=== PATIENT | female | born 1965 | race African-American/Black ===

== ENCOUNTER 2018-02-25 18:46 | Emergency (ER) | payer SELFPAY ==
[2018-02-25] MEDS ORDERED: Ketorolac Tromethamine 30 MG/ML VIAL ONE (20:17)
[2018-02-25] MEDS ORDERED: diphenhydrAMINE 50 MG/ML VIAL ONE (20:17)
[2018-02-25 20:39] LABS: #Eosinphils 0.2 thou/uL (0.0-0.7); #Lymphocytes 2.8 thou/uL (1.20-3.40); #Monocytes 0.4 thou/uL (0.11-0.59); #Neutrophils 5.6 thou/uL (1.40-6.50); %Basophils 0.2 % (0.0-1.0); %Eosinophils 2.1 % (0.0-10.0); %Lymphocytes 31.2 % (21.0-51.0); %Monocytes 4.6 % (0.0-10.0); %Neutrophils 61.9 % (42.0-75.0); Hemoglobin 12.7 g/dL (12.0-16.0); Mean Corpuscular HGB CONC 33.2 g/dL (32.0-36.0); Mean Corpuscular Hemoglobin 30.3 pg (27.0-31.0); Mean Corpuscular Volume 91.2 fl (81.0-99.0); Mean Platelet Volume 8.7 fL (7.4-10.4); Platelet Count 237 thou/uL (130-400); RBC Distribution Width 12.4 % (11.5-14.5); Red Blood Cell (RBC) Count 4.19 mill/uL (4.20-5.40); White Blood Cell (WBC) Count 9.1 thou/uL (4.8-10.8)
[2018-02-25 20:45] LABS: BHCG - Serum Negative (NEGATIVE); Pregs Control Background? CLEAR/WHITE (CLR/WHITE); Pregs Control Bar Appear? YES (CONTROL BAR)
[2018-02-25 20:53] LABS: ALT (SGPT) 15 U/L (8-55); AST (SGOT) 14 U/L (5-34); Alkaline Phosphatase 98 U/L (40-150); Anion Gap 11 mmol/L (10-20); BUN (Urea Nitrogen) 15 mg/dL (9.8-20.1); Bilirubin, Total 0.5 mg/dL (0.2-1.2); Calc. Creatinine Clearance 0 mL/min (70-130); Calcium 9.6 mg/dL (7.8-10.44); Carbon Dioxide 26 mmol/L (22-29); Chloride 106 mmol/L (98-107); Estimated GFR-MDRD 74; Globulin 2.8 g/dL (2.4-3.5); Glucose 95 mg/dL (70-105); Potassium 3.6 mmol/L (3.5-5.1); Protein, Total 6.8 g/dL (6.0-8.3); Sodium 139 mmol/L (136-145)
== END 2018-02-25 21:31 | disposition home or self-care (01) ==
LOC: ERS 18:46
DX: T63.441A Toxic effect of venom of bees, accidental (unintentional), initial encounter (principal); R55 Syncope and collapse; E03.9 Hypothyroidism, unspecified; Z79.899 Other long term (current) drug therapy
CPT/HCPCS: 36415; 80053; 84703; 85025; 93005; 96361; 96374; 96375; J1200; J1885

== ENCOUNTER 2019-05-28 13:34 | Emergency (ER) | payer OTHER, SELFPAY ==
[~2019-05-28 13:34] MED LIST: ISOVUE-370 76%-LOCM 1 ML ONE
[2019-05-28] MEDS ORDERED: HYDROcodone/Acetaminophen 5/325 mg Tablet ONE (15:18)
[2019-05-28 15:41] LABS: #Eosinphils 0.1 thou/uL (0.0-0.7); #Lymphocytes 3.1 thou/uL (1.20-3.40); #Monocytes 0.3 thou/uL (0.11-0.59); #Neutrophils 4.5 thou/uL (1.40-6.50); %Basophils 0.2 % (0.0-1.0); %Eosinophils 1.7 % (0.0-10.0); %Lymphocytes 38.2 % (21.0-51.0); %Monocytes 4.3 % (0.0-10.0); %Neutrophils 55.7 % (42.0-75.0); Hemoglobin 12.6 g/dL (12.0-16.0); Mean Corpuscular HGB CONC 33.3 g/dL (32.0-36.0); Mean Corpuscular Hemoglobin 30.4 pg (27.0-31.0); Mean Corpuscular Volume 91.5 fL (78.0-98.0); Mean Platelet Volume 8.9 fL (7.4-10.4); Platelet Count 250 thou/uL (130-400); RBC Distribution Width 12.4 % (11.5-14.5); Red Blood Cell (RBC) Count 4.14 mill/uL (4.20-5.40); White Blood Cell (WBC) Count 8.1 thou/uL (4.8-10.8)
[2019-05-28 16:01] LABS: ALT (SGPT) 14 U/L (8-55); AST (SGOT) 16 U/L (5-34); Albumin 4.3 g/dL (3.5-5.0); Alkaline Phosphatase 88 U/L (40-150); Anion Gap 12 mmol/L (10-20); BUN (Urea Nitrogen) 15 mg/dL (9.8-20.1); Bilirubin, Total 0.5 mg/dL (0.2-1.2); Calc. Creatinine Clearance 0 mL/min (70-130); Calcium 9.8 mg/dL (7.8-10.44); Carbon Dioxide 25 mmol/L (22-29); Chloride 104 mmol/L (98-107); Estimated GFR-MDRD Greater than 90; Globulin 2.8 g/dL (2.4-3.5); Glucose 107 mg/dL (70-105); Potassium 3.4 mmol/L (3.5-5.1); Protein, Total 7.1 g/dL (6.0-8.3); Sodium 138 mmol/L (136-145)
--- NOTE | 2019-05-28 16:07 | CT ---
CT ABDOMEN AND PELVIS WITH IV CONTRAST: 05/28/19 INDICATIONS: Abdominal pain. FINDINGS: The lung bases are clear. The liver, spleen and pancreas are unremarkable. Post cholecystectomy changes. Adrenal glands appear normal. Kidneys are unremarkable. Small bowel loops appear normal. Appendix appears normal. Colon unremarkable with the left colon decompressed. Aorta normal caliber. N o adenopathy apparent. Osseous structures unremarkable. IMPRESSION: No acute intra-abdominal process identified. POS: [facility]
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
--- NOTE | 2019-05-28 16:10 | RAD ---
LEFT KNEE FOUR VIEWS: 05/28/19 HISTORY: Fall, left knee pain. FINDINGS/IMPRESSION: No acute fracture or dislocation is seen. No joint effusion is identified. Mild degenerative changes are present. POS: [facility]
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
--- NOTE | 2019-05-28 16:26 | RAD ---
THREE VIEW RIGHT HAND: 05/28/19 INDICATION: Fall with injury and pain. FINDINGS: No fracture or dislocation. No radiopaque foreign body. There is mild osteoarthritis. IMPRESSION: No acute osseous abnormality of the right hand. POS: CET
== END 2019-05-28 16:55 | disposition home or self-care (01) ==
LOC: ERS 13:34
DX: S61.401A Unspecified open wound of right hand, initial encounter (principal); S50.812A Abrasion of left forearm, initial encounter; S80.212A Abrasion, left knee, initial encounter; S80.211A Abrasion, right knee, initial encounter; R10.9 Unspecified abdominal pain; R10.817 Generalized abdominal tenderness; E03.9 Hypothyroidism, unspecified; Z79.899 Other long term (current) drug therapy; W01.0XXA Fall on same level from slipping, tripping and stumbling without subsequent striking against object, initial encounter
CPT/HCPCS: 74177; 80053; 85025; Q9966

== ENCOUNTER 2019-06-03 12:06 | Emergency (ER) | payer SELFPAY ==
[2019-06-03 12:41] LABS: #Eosinphils 0.2 thou/uL (0.0-0.7); #Lymphocytes 3.1 thou/uL (1.20-3.40); #Monocytes 0.6 thou/uL (0.11-0.59); #Neutrophils 5.9 thou/uL (1.40-6.50); %Basophils 0.3 % (0.0-1.0); %Eosinophils 1.6 % (0.0-10.0); %Lymphocytes 31.8 % (21.0-51.0); %Monocytes 5.9 % (0.0-10.0); %Neutrophils 60.4 % (42.0-75.0); Hemoglobin 12.3 g/dL (12.0-16.0); Mean Corpuscular HGB CONC 33.4 g/dL (32.0-36.0); Mean Corpuscular Hemoglobin 30.3 pg (27.0-31.0); Mean Corpuscular Volume 90.7 fL (78.0-98.0); Platelet Count 237 thou/uL (130-400); RBC Distribution Width 12.4 % (11.5-14.5); Red Blood Cell (RBC) Count 4.06 mill/uL (4.20-5.40); White Blood Cell (WBC) Count 9.8 thou/uL (4.8-10.8)
[2019-06-03 13:00] LABS: ALT (SGPT) 15 U/L (8-55); AST (SGOT) 13 U/L (5-34); Albumin 4.1 g/dL (3.5-5.0); Alkaline Phosphatase 93 U/L (40-150); Anion Gap 11 mmol/L (10-20); BUN (Urea Nitrogen) 15 mg/dL (9.8-20.1); Bilirubin, Total 0.3 mg/dL (0.2-1.2); Calc. Creatinine Clearance 0 mL/min (70-130); Calcium 9.9 mg/dL (7.8-10.44); Carbon Dioxide 26 mmol/L (22-29); Chloride 106 mmol/L (98-107); Estimated GFR-MDRD 76; Globulin 2.7 g/dL (2.4-3.5); Glucose 80 mg/dL (70-105); Lipase 12 U/L (8-78); Potassium 3.7 mmol/L (3.5-5.1); Protein, Total 6.8 g/dL (6.0-8.3); Sodium 139 mmol/L (136-145)
== END 2019-06-03 14:02 | disposition home or self-care (01) ==
LOC: ERS 12:06
DX: R10.9 Unspecified abdominal pain (principal); R10.816 Epigastric abdominal tenderness; E03.9 Hypothyroidism, unspecified; Z79.899 Other long term (current) drug therapy
CPT/HCPCS: 36415; 80053; 83690; 85025; 99284

== ENCOUNTER 2019-10-13 03:20 | Emergency (ER) | payer SELFPAY ==
[2019-10-13 04:03] LABS: #Basophils 0.1 thou/uL (0.0-0.2); #Eosinphils 0.2 thou/uL (0.0-0.7); #Lymphocytes 3.3 thou/uL (1.20-3.40); #Monocytes 0.4 thou/uL (0.11-0.59); #Neutrophils 4.8 thou/uL (1.40-6.50); %Basophils 1.4 % (0.0-1.0); %Eosinophils 1.9 % (0.0-10.0); %Lymphocytes 37.5 % (21.0-51.0); %Monocytes 4.6 % (0.0-10.0); %Neutrophils 54.6 % (42.0-75.0); Hemoglobin 12.7 g/dL (12.0-16.0); Mean Corpuscular HGB CONC 32.6 g/dL (32.0-36.0); Mean Corpuscular Hemoglobin 29.8 pg (27.0-31.0); Mean Corpuscular Volume 91.3 fL (78.0-98.0); Mean Platelet Volume 9.6 fL (7.4-10.4); Platelet Count 227 thou/uL (130-400); RBC Distribution Width 12.5 % (11.5-14.5); Red Blood Cell (RBC) Count 4.27 mill/uL (4.20-5.40); White Blood Cell (WBC) Count 8.8 thou/uL (4.8-10.8)
[2019-10-13 04:26] LABS: ALT (SGPT) 12 U/L (8-55); AST (SGOT) 13 U/L (5-34); Albumin 4.2 g/dL (3.5-5.0); Alkaline Phosphatase 80 U/L (40-110); Anion Gap 11 mmol/L (10-20); BUN (Urea Nitrogen) 17 mg/dL (9.8-20.1); Bilirubin, Total 0.5 mg/dL (0.2-1.2); Calc. Creatinine Clearance 0 mL/min (70-130); Calcium 9.5 mg/dL (7.8-10.44); Carbon Dioxide 25 mmol/L (22-29); Chloride 105 mmol/L (98-107); Estimated GFR-MDRD 83; Globulin 2.8 g/dL (2.4-3.5); Glucose 105 mg/dL (70-105); Potassium 3.5 mmol/L (3.5-5.1); Sodium 137 mmol/L (136-145)
[2019-10-13 05:03] LABS: Bilirubin Negative (Negative); Blood, Urine Negative (Negative); Clarity Clear (Clear); Glucose, Urine (Dipstick) Normal (Negative); Leukocyte Negative Leu/uL (Negative); Nitrite Negative (Negative); Protein, Urine (Dipstick) Negative (Neg-Trace); Urobilinogen Normal mg/dL (Less than 2)
--- NOTE | 2019-10-13 08:15 | CT ---
PRELIMINARY REPORT/[facility]/EMERGENCY AFTER HOURS PROCEDURE: PROCEDURE: CT Head without Contrast . HISTORY: Dizziness and blurred vision. TECHNIQUE: Axial images were performed without the administration of IV contrast with or without mult iplanar reformations . COMPARISON: None . FINDINGS: Brain shows no mass, hemorrhage, or acute stroke. Ventricles are normal size for patient's age. No acute skull or scalp abnormality. Visualized sinuses and mastoids are clear. IMPRESSION: Normal CT scan of the head . ELECTRONICALLY SIGNED BY: Jeb Hanna MD Oct 13, 2019 4:49:41 AM ADVICE NURSE This report is intended for review by the ordering physician only, in accordance of law. If you recei ve this report in error, please call [facility] at [phone]. FINAL REPORT HEAD CT WITHOUT CONTRAST: DATE: 10/13/2019. COMPARISON: None. HISTORY: Dizziness with blurred vision. FINDINGS: I agree with the preliminary report. Imaged paranasal sinuses and mastoid air cells are well aerated . No displaced calvarial fracture, intracranial hemorrhage, midline shift, or mass effect. IMPRESSION: No acute findings. POS: [facility]
== END 2019-10-13 05:07 | disposition home or self-care (01) ==
LOC: ERS 03:20
DX: R55 Syncope and collapse (principal); E11.9 Type 2 diabetes mellitus without complications; E03.9 Hypothyroidism, unspecified; Z79.899 Other long term (current) drug therapy
CPT/HCPCS: 70450; 80053; 81003; 84443; 84484; 85025; 93005

== ENCOUNTER 2019-12-08 04:39 | Emergency (ER) | payer SELFPAY ==
[2019-12-08] MEDS ORDERED: Acetaminophen 500 MG TAB ONE (05:56)
== END 2019-12-08 06:04 | disposition home or self-care (01) ==
LOC: ERS 04:39
DX: J10.1 Influenza due to other identified influenza virus with other respiratory manifestations (principal); E03.9 Hypothyroidism, unspecified; E11.9 Type 2 diabetes mellitus without complications; Z79.899 Other long term (current) drug therapy
CPT/HCPCS: 87804; 99283

== ENCOUNTER 2019-12-11 05:28 | Emergency (ER) | payer SELFPAY ==
[2019-12-11] MEDS ORDERED: Benzonatate 100 MG CAP PO SCH (05:45)
[2019-12-11 05:54] LABS: #Eosinphils 0.1 thou/uL (0.0-0.7); #Lymphocytes 2.8 thou/uL (1.20-3.40); #Monocytes 0.4 thou/uL (0.11-0.59); #Neutrophils 2.4 thou/uL (1.40-6.50); %Basophils 0.2 % (0.0-1.0); %Lymphocytes 49.9 % (21.0-51.0); %Monocytes 6.7 % (0.0-10.0); %Neutrophils 42.3 % (42.0-75.0); Hemoglobin 12.8 g/dL (12.0-16.0); Mean Corpuscular HGB CONC 33.5 g/dL (32.0-36.0); Mean Corpuscular Hemoglobin 30.8 pg (27.0-31.0); Mean Platelet Volume 9.5 fL (7.4-10.4); Platelet Count 200 thou/uL (130-400); RBC Distribution Width 12.2 % (11.5-14.5); Red Blood Cell (RBC) Count 4.16 mill/uL (4.20-5.40); White Blood Cell (WBC) Count 5.7 thou/uL (4.8-10.8)
[2019-12-11 06:18] LABS: ALT (SGPT) 19 U/L (8-55); AST (SGOT) 19 U/L (5-34); Albumin 3.9 g/dL (3.5-5.0); Alkaline Phosphatase 82 U/L (40-110); Anion Gap 13 mmol/L (10-20); BUN (Urea Nitrogen) 14 mg/dL (9.8-20.1); Bilirubin, Total 0.3 mg/dL (0.2-1.2); CK (CPK) 197 U/L (29-168); Calc. Creatinine Clearance 0 mL/min (70-130); Carbon Dioxide 22 mmol/L (22-29); Chloride 109 mmol/L (98-107); Estimated GFR-MDRD 89; Globulin 2.2 g/dL (2.4-3.5); Glucose 104 mg/dL (70-105); Lipase 19 U/L (8-78); Potassium 4.1 mmol/L (3.5-5.1); Protein, Total 6.1 g/dL (6.0-8.3); Sodium 140 mmol/L (136-145)
--- NOTE | 2019-12-11 07:50 | RAD ---
Portable frontal chest radiograph: 12/11/2019 COMPARISON: 05/29/2013 HISTORY: Chest and back pain FINDINGS: Lungs are clear. Heart and mediastinal contours appear within normal limits. IMPRESSION: No acute findings.
--- NOTE | 2019-12-13 14:48 | EKG ---
Test Reason : CP Blood Pressure : / mmHG Vent. Rate : 089 BPM Atrial Rate : 089 BPM P-R Int : 150 ms QRS Dur : 068 ms QT Int : 356 ms P-R-T Axes : 057 019 -39 degrees QTc Int : 433 ms Sinus rhythm with occasional Premature ventricular complexes Abnormal ECG Confirmed by MIL SHANKS M.D. ([id number]), television news video editor CLARIBEL ORNELAS ([id number]) on 12/13/2019 2:47:53 PM Referred By: Confirmed By:MIL SHANKS M.D.
== END 2019-12-11 06:42 | disposition home or self-care (01) ==
LOC: ERS 05:28
DX: R09.1 Pleurisy (principal); R05 Cough; E03.9 Hypothyroidism, unspecified; Z79.1 Long term (current) use of non-steroidal anti-inflammatories (NSAID); Z79.899 Other long term (current) drug therapy
CPT/HCPCS: 36415; 71045; 80053; 82550; 83690; 84484; 85025; 93005; J7620

== ENCOUNTER 2021-03-04 19:25 | Emergency (ER) | payer SELFPAY ==
[2021-03-04 20:08] LABS: #Basophils 0.1 thou/uL (0.0-0.2); #Eosinphils 0.2 thou/uL (0.0-0.7); #Lymphocytes 3.5 thou/uL (1.20-3.40); #Monocytes 0.5 thou/uL (0.11-0.59); #Neutrophils 5.2 thou/uL (1.40-6.50); %Basophils 0.9 % (0.0-1.0); %Eosinophils 1.7 % (0.0-10.0); %Lymphocytes 37.2 % (21.0-51.0); %Monocytes 4.8 % (0.0-10.0); %Neutrophils 55.5 % (42.0-75.0); Hemoglobin 12.9 g/dL (12.0-16.0); Mean Corpuscular HGB CONC 34.3 g/dL (32.0-36.0); Mean Corpuscular Hemoglobin 31.4 pg (27.0-31.0); Mean Corpuscular Volume 91.7 fL (78.0-98.0); Mean Platelet Volume 8.9 fL (7.4-10.4); Platelet Count 227 thou/uL (130-400); RBC Distribution Width 12.7 % (11.5-14.5); Red Blood Cell (RBC) Count 4.11 mill/uL (4.20-5.40); White Blood Cell (WBC) Count 9.4 thou/uL (4.8-10.8)
[2021-03-04] MEDS ORDERED: Nitroglycerin 2% Ointment 1 INCH/1 GM Packet ONE (20:16)
[2021-03-04] MEDS ORDERED: Acetaminophen 500 MG TAB ONE (20:22)
[2021-03-04 20:28] LABS: ALT (SGPT) 15 U/L (8-55); AST (SGOT) 13 U/L (5-34); Alkaline Phosphatase 91 U/L (40-110); Anion Gap 13 mmol/L (10-20); BUN (Urea Nitrogen) 13 mg/dL (9.8-20.1); Bilirubin, Total 0.3 mg/dL (0.2-1.2); Calc. Creatinine Clearance 0 mL/min (70-130); Calcium 9.5 mg/dL (7.8-10.44); Carbon Dioxide 24 mmol/L (22-29); Chloride 107 mmol/L (98-107); Globulin 2.8 g/dL (2.4-3.5); Glucose 96 mg/dL (70-105); Protein, Total 6.8 g/dL (6.0-8.3); Sodium 140 mmol/L (136-145)
[2021-03-04 23:06] LABS: Troponin I Less than 0.010 ng/mL (< 0.028)
== END 2021-03-04 23:34 | disposition home or self-care (01) ==
LOC: ERS 19:25
DX: R07.89 Other chest pain (principal); E03.9 Hypothyroidism, unspecified; Z79.899 Other long term (current) drug therapy
CPT/HCPCS: 36415; 71045; 80053; 83880; 84484; 85025; 93005

== ENCOUNTER 2021-05-06 22:58 | Inpatient (IN) | payer BC, OTHER, SELFPAY ==
[~2021-05-06 22:58] MED LIST changes: -ISOVUE-370 76%-LOCM 1 ML ONE; +Iopamidol-370 76% 500 ML 1 ML ONE
[2021-05-06 23:28] LABS: #Basophils 0.1 thou/uL (0.0-0.2); #Eosinphils 0.2 thou/uL (0.0-0.7); #Lymphocytes 3.7 thou/uL (1.20-3.40); #Monocytes 0.6 thou/uL (0.11-0.59); #Neutrophils 6.2 thou/uL (1.40-6.50); %Basophils 0.8 % (0.0-1.0); %Lymphocytes 34.2 % (21.0-51.0); %Monocytes 5.1 % (0.0-10.0); %Neutrophils 57.9 % (42.0-75.0); Hemoglobin 12.2 g/dL (12.0-16.0); Mean Corpuscular HGB CONC 32.5 g/dL (32.0-36.0); Mean Corpuscular Hemoglobin 30.4 pg (27.0-31.0); Mean Corpuscular Volume 93.4 fL (78.0-98.0); Platelet Count 248 thou/uL (130-400); RBC Distribution Width 12.8 % (11.5-14.5); Red Blood Cell (RBC) Count 4.01 mill/uL (4.20-5.40); White Blood Cell (WBC) Count 10.8 thou/uL (4.8-10.8)
[2021-05-06 23:49] LABS: Acetaminophen Less than 6.0 mcg/mL (10.0-30.0); Alcohol Less than 10 mg/dL (Less than 10); Salicylate Less than 8.0 mg/dL (15.0-30.0)
[2021-05-07] MEDS ORDERED: Aspirin Chewable 81 MG TAB ONE ×2 (00:40→09:03)
[2021-05-07 00:54] LABS: Bilirubin Negative (Negative); Blood, Urine Negative (Negative); Clarity Clear (Clear); Glucose, Urine (Dipstick) Normal (Negative); Ketone, Urine Negative (Negative); Leukocyte Negative Leu/uL (Negative); Nitrite Negative (Negative); Protein, Urine (Dipstick) Negative (Neg-Trace); Urobilinogen Normal mg/dL (Less than 2); pH, Urine 6.5 (5.0-9.0)
[2021-05-07 00:56] LABS: Specific Gravity, Urine 1.048 (1.002-1.036)
[2021-05-07 00:57] LABS: Amphetamine Not Detected (NotDetected); Barbiturates Screen Not Detected (NotDetected); Benzodiazepine Screen Not Detected (NotDetected); Cocaine Metabolite Screen Not Detected (NotDetected); Methadone Not Detected (NotDetected); Methamphetamine Not Detected (NotDetected); Opiate Screen Not Detected (NotDetected); Oxycodone Screen Not Detected (NotDetected); Phencyclidine (PCP) Not Detected (NotDetected); THC/Cannabinoid Screen Detected (NotDetected); Tricyclic Screen Not Detected (NotDetected)
[2021-05-07 01:21] LABS: ALT (SGPT) 15 U/L (8-55); AST (SGOT) 15 U/L (5-34); Albumin 4.1 g/dL (3.5-5.0); Alkaline Phosphatase 94 U/L (40-110); Anion Gap 13 mmol/L (10-20); BUN (Urea Nitrogen) 18 mg/dL (9.8-20.1); Bilirubin, Total 0.5 mg/dL (0.2-1.2); Calc. Creatinine Clearance 0 mL/min (70-130); Calcium 9.9 mg/dL (7.8-10.44); Carbon Dioxide 24 mmol/L (22-29); Chloride 106 mmol/L (98-107); Glucose 116 mg/dL (70-105); Potassium 3.9 mmol/L (3.5-5.1); Protein, Total 7.1 g/dL (6.0-8.3); Sodium 139 mmol/L (136-145)
[2021-05-07 01:58] VITALS: BMI 42.7
[2021-05-07] MEDS ORDERED: Acetaminophen 325 MG TAB PO PRN (02:00)
[2021-05-07] MEDS ORDERED: Sodium Chloride 0.9% 1,000 ML IV SCH (02:00)
[2021-05-07] MEDS ORDERED: Ondansetron ODT 4 MG TAB SL PRN (02:00)
[2021-05-07] MEDS ORDERED: Ondansetron PF 4 MG/2 ML Vial IVP PRN (02:00)
[2021-05-07 02:09] LABS: SARS-CoV-2 NAA Rapid Test Not Detected (NotDetected)
[2021-05-07] MEDS ORDERED: hydrALAZINE 20 MG/ML VIAL SLOW IVP PRN (04:42)
[2021-05-07] MEDS ORDERED: Acetaminophen 650 MG Suppository PR PRN (04:42)
[2021-05-07] MEDS ORDERED: Enoxaparin Sodium 40 MG/0.4 ML SYRINGE ONE (09:03)
[2021-05-07] MEDS: Aspirin 81 mg Enteric Coated Tablet PO SCH (09:10)
[2021-05-07] MEDS: Enoxaparin Sodium 40 MG/0.4 ML SYRINGE SC SCH (09:10)
[2021-05-08 05:05] LABS: #Eosinphils 0.2 thou/uL (0.0-0.7); #Lymphocytes 3.7 thou/uL (1.20-3.40); #Monocytes 0.5 thou/uL (0.11-0.59); #Neutrophils 5.1 thou/uL (1.40-6.50); %Basophils 0.3 % (0.0-1.0); %Eosinophils 2.4 % (0.0-10.0); %Lymphocytes 38.7 % (21.0-51.0); %Monocytes 4.7 % (0.0-10.0); %Neutrophils 53.8 % (42.0-75.0); Hemoglobin 11.5 g/dL (12.0-16.0); Mean Corpuscular Hemoglobin 30.6 pg (27.0-31.0); Mean Corpuscular Volume 92.7 fL (78.0-98.0); Mean Platelet Volume 9.1 fL (7.4-10.4); Platelet Count 219 thou/uL (130-400); RBC Distribution Width 12.7 % (11.5-14.5); Red Blood Cell (RBC) Count 3.77 mill/uL (4.20-5.40); White Blood Cell (WBC) Count 9.5 thou/uL (4.8-10.8)
[2021-05-08 05:30] LABS: Anion Gap 9 mmol/L (10-20); BUN (Urea Nitrogen) 20 mg/dL (9.8-20.1); Calc. Creatinine Clearance 148 mL/min (70-130); Calcium 9.1 mg/dL (7.8-10.44); Carbon Dioxide 23 mmol/L (22-29); Cardiac Risk 4.1 (Less than 4.5); Chloride 109 mmol/L (98-107); Cholesterol 159 mg/dl (< 200 Desired); Glucose 100 mg/dL (70-105); HDL Cholesterol 39 mg/dL (>60 Neg Risk); LDL Cholesterol, Calculated 103 mg/dL; Potassium 3.9 mmol/L (3.5-5.1); Sodium 137 mmol/L (136-145); Triglycerides 87 mg/dL (Less than 150)
[2021-05-08] MEDS ORDERED: Levothyroxine 150 MCG TAB PO SCH (06:00)
[2021-05-08] MEDS ORDERED: Hydrochlorothiazide 25 MG TAB PO SCH (09:00)
[2021-05-08] MEDS: Enoxaparin Sodium 40 MG/0.4 ML SYRINGE SC SCH (09:37)
[2021-05-08] MEDS: Aspirin 81 mg Enteric Coated Tablet PO SCH (09:37)
[2021-05-08 11:08] VITALS: BP 124/72; TEMP 98.2
== END 2021-05-08 13:48 | disposition home or self-care (01) | DRG 896 ==
LOC: ERS 22:58 → ERHOLD 05-07 00:27 → 2SE 05-07 14:44
PROVIDERS: ADMIT Student in an Organized Health Care Education/Training Program; ATTEND Student in an Organized Health Care Education/Training Program
DX: F12.90 Cannabis use, unspecified, uncomplicated (principal); G92 Toxic encephalopathy; Z20.822 Contact with and (suspected) exposure to COVID-19; E03.9 Hypothyroidism, unspecified; I10 Essential (primary) hypertension; Z90.710 Acquired absence of both cervix and uterus; Z79.890 Hormone replacement therapy; Z79.82 Long term (current) use of aspirin; Z79.01 Long term (current) use of anticoagulants; Z79.899 Other long term (current) drug therapy; Z86.718 Personal history of other venous thrombosis and embolism
CPT/HCPCS: 0240U; 36415; 36416; 70450; 70496; 70498; 70551; 80048; 80053; 80061; 80306; 80307; 81003; 83735; 84443; 85025; 93005; 93306; J1650; Q9967

== ENCOUNTER 2021-08-19 10:36 | Outpatient (CLI) | payer BC | END 2021-08-19 10:37 | disposition home or self-care (01) | LOC: EKG 10:36 | PROVIDERS: ATTEND Surgery | DX: Z01.810 Encounter for preprocedural cardiovascular examination (principal) | CPT/HCPCS: 93005; 93010 ==

== ENCOUNTER 2021-09-14 04:07 | Observation (INO) | payer BC ==
[2021-09-14] MEDS ORDERED: Morphine 4 MG/ML VIAL ONE ×2 (04:33→08:27)
[2021-09-14] MEDS ORDERED: Ondansetron PF 4 MG/2 ML Vial ONE (04:33)
[2021-09-14 05:09] LABS: #Lymphocytes 1.6 thou/uL (1.20-3.40); #Monocytes 0.3 thou/uL (0.11-0.59); #Neutrophils 5.6 thou/uL (1.40-6.50); %Basophils 0.2 % (0.0-1.0); %Lymphocytes 21.2 % (21.0-51.0); %Monocytes 3.6 % (0.0-10.0); %Neutrophils 75.1 % (42.0-75.0); Hemoglobin 12.6 g/dL (12.0-16.0); Mean Corpuscular HGB CONC 32.9 g/dL (32.0-36.0); Mean Corpuscular Hemoglobin 30.4 pg (27.0-31.0); Mean Corpuscular Volume 92.5 fL (78.0-98.0); Mean Platelet Volume 8.8 fL (7.4-10.4); Platelet Count 220 thou/uL (130-400); Red Blood Cell (RBC) Count 4.15 mill/uL (4.20-5.40); White Blood Cell (WBC) Count 7.4 thou/uL (4.8-10.8)
[2021-09-14 05:17] LABS: Bacteria/HPF None Seen HPF (None Seen); Bilirubin Negative (Negative); Blood, Urine Negative (Negative); Clarity Clear (Clear); Glucose, Urine (Dipstick) Normal (Negative); Ketone, Urine 100 mg/dL (Negative); Leukocyte Negative Leu/uL (Negative); Nitrite Negative (Negative); Protein, Urine (Dipstick) 10 mg/dL (Neg-Trace); RBC/HPF 0-3 HPF (0-3); Specific Gravity, Urine 1.029 (1.002-1.036); Squamous Epithelial 0-3 HPF (0-3); WBC/HPF 0-3 HPF (0-3)
[2021-09-14 05:33] LABS: ALT (SGPT) 34 U/L (8-55); AST (SGOT) 30 U/L (5-34); Alkaline Phosphatase 85 U/L (40-110); Anion Gap 15 mmol/L (10-20); BUN (Urea Nitrogen) 10 mg/dL (9.8-20.1); Bilirubin, Total 0.5 mg/dL (0.2-1.2); CK (CPK) 268 U/L (29-168); Calc. Creatinine Clearance 0 mL/min (70-130); Calcium 9.3 mg/dL (7.8-10.44); Carbon Dioxide 23 mmol/L (22-29); Chloride 105 mmol/L (98-107); Globulin 2.5 g/dL (2.4-3.5); Glucose 129 mg/dL (70-105); Lipase 7 U/L (8-78); Potassium 4.5 mmol/L (3.5-5.1); Protein, Total 6.5 g/dL (6.0-8.3); Sodium 138 mmol/L (136-145)
[2021-09-14 07:55] LABS: Troponin I 0.033 ng/mL (< 0.028)
[2021-09-14] MEDS ORDERED: Piperacillin/Tazobactam 3.375 GM VIAL ONE (08:27)
[2021-09-14 09:46] LABS: SARS-CoV-2 NAA Rapid Test Not Detected (NotDetected)
[2021-09-14 11:15] LABS: Troponin I Less than 0.010 ng/mL (< 0.028)
[2021-09-14] MEDS ORDERED: Iopamidol-370 76% 500 ML 1 ML ONE (11:15)
[2021-09-14] MEDS ORDERED: Acetaminophen 500 MG TAB PO PRN (11:51)
[2021-09-14] MEDS ORDERED: Ondansetron ODT 4 MG TAB PO PRN (11:51)
[2021-09-14] MEDS ORDERED: Ondansetron PF 4 MG/2 ML Vial IVP PRN (11:51)
[2021-09-14] MEDS ORDERED: HYDROcodone/Acetaminophen 5/325 mg Tablet PO PRN ×2 (11:51)
[2021-09-14] MEDS ORDERED: Ketorolac Tromethamine 30 MG/ML VIAL ONE (12:00)
[2021-09-14] MEDS ORDERED: Morphine 4 MG/ML VIAL SLOW IVP PRN (12:16)
[2021-09-14 12:30] LABS: Lactic Acid 2.1 mmol/L (0.5-2.2)
[2021-09-14] MEDS: Ketorolac Tromethamine 30 MG/ML VIAL IVP SCH ×3 (12:52→23:19)
[2021-09-14 13:41] LABS: Troponin I Less than 0.010 ng/mL (< 0.028)
[2021-09-14 16:45] VITALS: BMI 46.1
[2021-09-14] MEDS ORDERED: FLU VACC QS2021-22(6MOS UP)/PF 60 MCG/0.5 ML SYRINGE IM ONE (17:15)
[2021-09-14] MEDS: Famotidine 20 MG TAB PO SCH (20:56)
[2021-09-15] MEDS: Ketorolac Tromethamine 30 MG/ML VIAL IVP SCH (05:46)
[2021-09-15] MEDS ORDERED: Levothyroxine 150 MCG TAB PO SCH (06:00)
[2021-09-15 07:54] VITALS: BP 139/76; TEMP 98.5
[2021-09-15] MEDS: Famotidine 20 MG TAB PO SCH (08:14)
== END 2021-09-15 10:55 | disposition home or self-care (01) ==
LOC: ERS 04:07 → ERHOLD 08:54 → 2NO 16:12
PROVIDERS: ADMIT Family Medicine; ATTEND Family Medicine
DX: G89.18 Other acute postprocedural pain (principal); R10.9 Unspecified abdominal pain; R07.89 Other chest pain; J98.11 Atelectasis; E03.9 Hypothyroidism, unspecified; R77.8 Other specified abnormalities of plasma proteins; R59.0 Localized enlarged lymph nodes; R01.1 Cardiac murmur, unspecified; E66.01 Morbid (severe) obesity due to excess calories; Z68.42 Body mass index [BMI] 45.0-49.9, adult; Z86.718 Personal history of other venous thrombosis and embolism; Z79.899 Other long term (current) drug therapy; Z98.84 Bariatric surgery status; Z20.822 Contact with and (suspected) exposure to COVID-19
CPT/HCPCS: 36415; 51701; 71045; 71275; 74177; 80053; 81003; 82550; 83605; 83690; 83735; 84484; 85025; 87040; 87086; 93005; 96365; 96366; 96375; 96376; G0378; J1885; J2270; J2405; J2543; Q9967; U0002

== ENCOUNTER 2022-12-07 14:52 | Emergency (ER) | payer BC ==
[2022-12-07] MEDS ORDERED: Morphine 4 MG/ML VIAL ONE (17:43)
[2022-12-07] MEDS ORDERED: Ondansetron ODT 4 MG TAB ONE (17:44)
[2022-12-07] MEDS ORDERED: Ketorolac Tromethamine 30 MG/ML VIAL ONE (17:48)
== END 2022-12-07 18:02 | disposition home or self-care (01) ==
LOC: ERS 14:52
DX: S09.90XA Unspecified injury of head, initial encounter (principal); H92.01 Otalgia, right ear; E03.9 Hypothyroidism, unspecified; Y04.0XXA Assault by unarmed brawl or fight, initial encounter
CPT/HCPCS: 70450; 70486; 96372; J1885; J2270; Q0162

== ENCOUNTER 2023-08-29 04:42 | Emergency (ER) | payer BC ==
[2023-08-29] MEDS ORDERED: Ketorolac Tromethamine 30 MG/ML VIAL ONE (04:56)
[2023-08-29] MEDS ORDERED: predniSONE 20 MG TAB ONE (05:00)
== END 2023-08-29 05:12 | disposition home or self-care (01) ==
LOC: ERS 04:42
DX: M54.42 Lumbago with sciatica, left side (principal); M62.830 Muscle spasm of back
CPT/HCPCS: 96372; 99283; J1885; J7512

== ENCOUNTER 2023-09-21 10:40 | Outpatient (CLI) | payer BC | END 2023-09-21 10:41 | disposition home or self-care (01) | LOC: BICRAD 10:40 | PROVIDERS: ATTEND Family Medicine | DX: M54.59 Other low back pain (principal); M47.816 Spondylosis without myelopathy or radiculopathy, lumbar region | CPT/HCPCS: 72100 ==

== ENCOUNTER 2023-10-12 08:00 | Outpatient (CLI) | payer BC | END 2023-10-12 08:01 | disposition home or self-care (01) | LOC: SCSMRI 08:00 | PROVIDERS: ATTEND Physician Assistant | DX: M54.42 Lumbago with sciatica, left side (principal); M48.061 Spinal stenosis, lumbar region without neurogenic claudication | CPT/HCPCS: 72148 ==

== ENCOUNTER 2023-10-16 17:33 | Emergency (ER) | payer BC ==
[2023-10-16] MEDS ORDERED: Ketorolac Tromethamine 30 MG (1 mL) VIAL ONE (18:24)
[2023-10-16 18:39] LABS: #Basophils 0.1 thou/uL (0.0-0.2); #Eosinphils 0.2 thou/uL (0.0-0.7); #Monocytes 0.5 thou/uL (0.11-0.59); #Neutrophils 5.7 thou/uL (1.40-6.50); %Basophils 0.5 % (0.0-1.0); %Eosinophils 1.5 % (0.0-10.0); %Lymphocytes 41.4 % (21.0-51.0); %Monocytes 4.5 % (0.0-10.0); %Neutrophils 51.8 % (42.0-75.0); Hematocrit 40.7 % (36.0-47.0); Hemoglobin 13.1 g/dL (12.0-16.0); Mean Corpuscular HGB CONC 32.2 g/dL (32.0-36.0); Mean Corpuscular Hemoglobin 30.8 pg (27.0-31.0); Mean Corpuscular Volume 95.8 fl (78.0-98.0); Mean Platelet Volume 10.9 fL (7.4-10.4); Platelet Count 266 10x3/uL (130-400); RBC Distribution Width 13.2 % (11.5-14.5); Red Blood Cell (RBC) Count 4.25 mill/uL (4.20-5.40)
[2023-10-16 19:05] LABS: Troponin I Less than 0.010 ng/mL (< 0.028)
[2023-10-16 19:11] LABS: ALT (SGPT) 17 U/L (8-55); AST (SGOT) 24 U/L (5-34); Albumin 3.8 g/dL (3.5-5.0); Alkaline Phosphatase 78 U/L (40-110); Anion Gap 8 mmol/L (10-20); BUN (Urea Nitrogen) 15 mg/dL (9.8-20.1); Bilirubin, Total 0.2 mg/dL (0.2-1.2); Calc. Creatinine Clearance 0 mL/min (70-130); Calcium 9.1 mg/dL (7.8-10.44); Carbon Dioxide 29 mmol/L (22-29); Chloride 107 mmol/L (98-107); Estimated GFR 73; Glucose 100 mg/dL (70-105); Lipase 15 U/L (8-78); Potassium 4.3 mmol/L (3.5-5.1); Protein, Total 6.8 g/dL (6.0-8.3); Sodium 140 mmol/L (136-145)
[2023-10-16 19:23] LABS: SARS-CoV-2 NAA Rapid Test Not Detected (NotDetected)
== END 2023-10-16 19:49 | disposition home or self-care (01) ==
LOC: ERS 17:33
DX: R53.1 Weakness (principal); E03.9 Hypothyroidism, unspecified; Z79.890 Hormone replacement therapy
CPT/HCPCS: 71045; 80053; 83690; 84484; 85025; 93005; 96374; J1885

== ENCOUNTER 2024-03-05 07:42 | Outpatient (CLI) | payer BC | END 2024-03-05 07:43 | disposition home or self-care (01) | LOC: BICMAMMO 07:42 | PROVIDERS: ATTEND Nurse Practitioner Family | DX: Z12.31 Encounter for screening mammogram for malignant neoplasm of breast (principal) | CPT/HCPCS: 77063; 77067 ==

== ENCOUNTER 2024-07-17 07:29 | Outpatient (CLI) | payer BC ==
[2024-07-17] MEDS ORDERED: E-Z-HD 98% W/W 340GM BOT (x-ray ONLY) ONE (07:45)
[2024-07-17] MEDS ORDERED: Barium Sulfate 96% 176 GM BOT (xray ONLY) ONE (07:45)
== END 2024-07-17 07:30 | disposition home or self-care (01) ==
LOC: RAD 07:29
PROVIDERS: ATTEND Surgery
DX: Z48.815 Encounter for surgical aftercare following surgery on the digestive system (principal); Z98.84 Bariatric surgery status
CPT/HCPCS: 74220

== ENCOUNTER 2024-08-12 11:19 | Outpatient (CLI) | payer BC ==
[2024-08-12 13:33] LABS: #Basophils 0.05 10x3/uL (0.0-0.2); %Basophils 0.7 % (0.0-1.0); %Eosinophils 2.4 % (0.0-10.0); %Lymphocytes 38.2 % (21.0-51.0); %Monocytes 5.6 % (0.0-10.0); %Neutrophils 52.8 % (42.0-75.0); Hematocrit 37.1 % (36.0-47.0); Hemoglobin 11.8 g/dL (12.0-16.0); Mean Corpuscular HGB CONC 31.8 g/dL (32.0-36.0); Mean Corpuscular Hemoglobin 29.6 pg (27.0-31.0); Mean Corpuscular Volume 93.2 fL (78.0-98.0); Mean Platelet Volume 11.9 fL (7.4-10.4); Platelet Count 247 10x3/uL (130-400); RBC Distribution Width 13.8 % (11.5-14.5); Red Blood Cell (RBC) Count 3.98 mill/uL (4.20-5.40)
[2024-08-12 13:49] LABS: ALT (SGPT) 14 U/L (8-55); AST (SGOT) 16 U/L (5-34); Albumin 3.6 g/dL (3.5-5.0); Alkaline Phosphatase 77 U/L (40-110); Anion Gap 9 mmol/L (10-20); BUN (Urea Nitrogen) 14 mg/dL (9.8-20.1); Bilirubin, Total 0.3 mg/dL (0.2-1.2); Calc. Creatinine Clearance 0 mL/min (70-130); Calcium 9.4 mg/dL (7.8-10.44); Carbon Dioxide 25 mmol/L (22-29); Chloride 107 mmol/L (98-107); Estimated GFR 87; Globulin 2.8 g/dL (2.4-3.5); Glucose 71 mg/dL (70-105); Potassium 3.7 mmol/L (3.5-5.1); Protein, Total 6.4 g/dL (6.0-8.3); Sodium 137 mmol/L (136-145)
== END 2024-08-12 11:20 | disposition home or self-care (01) ==
LOC: LABBT 11:19
PROVIDERS: ATTEND Surgery
DX: Z01.818 Encounter for other preprocedural examination (principal); K95.09 Other complications of gastric band procedure
CPT/HCPCS: 80053; 85025

== ENCOUNTER 2024-08-22 05:33 | Day surgery (SDC) | payer BC ==
[2024-08-12 11:31] VITALS: BMI 43.0
[2024-08-22] MEDS ORDERED: Bupivacaine 0.25% HCL 30 ML VIAL ONE (06:10)
[2024-08-22] MEDS ORDERED: EPINEPHrine 1 MG/ML VIAL ONE (06:10)
[2024-08-22] MEDS ORDERED: Famotidine/PF 20 mg/2ml Vial ONE (06:27)
[2024-08-22] MEDS ORDERED: CEFAZOLIN 2 GM VIAL ONE (07:21)
[2024-08-22] MEDS ORDERED: fentaNYL PF 100 MCG/2 ML SYRINGE ONE (07:29)
[2024-08-22] MEDS ORDERED: PROPOFOL 20 ML ONE (07:30)
[2024-08-22] MEDS ORDERED: Lidocaine 2% PF 5 ML VIAL ONE (07:35)
[2024-08-22] MEDS ORDERED: Rocuronium Bromide 10 MG/ML (10ML VIAL) ONE (07:35)
[2024-08-22] MEDS ORDERED: SUGAMMADEX SODIUM 200 MG/2 ML VIAL ONE (08:00)
[2024-08-22] MEDS ORDERED: Dexamethasone 4 mg/ml Vial ONE (08:00)
[2024-08-22] MEDS ORDERED: Ketorolac Tromethamine 30 MG (1 mL) VIAL ONE (08:00)
[2024-08-22] MEDS ORDERED: Ondansetron PF 4 MG/2 ML Vial ONE (08:00)
[2024-08-22] MEDS ORDERED: PHENYLEPHRINE-NS 100 MCG/ML 10 ML SYRINGE ONE (08:02)
[2024-08-22] MEDS ORDERED: ePHEDrine Sulfate 50 MG/10 ML VIAL ONE (08:14)
[2024-08-22] MEDS ORDERED: HYDROmorphone 0.5 MG/0.5 ML SYRINGE ONE (09:15)
[2024-08-22] MEDS ORDERED: Ondansetron ODT 4 MG TAB ONE (11:01)
== END 2024-08-22 11:28 | disposition home or self-care (01) ==
LOC: SDC 05:33
PROVIDERS: ATTEND Surgery
PROC: 0DP64CZ Removal of Extraluminal Device from Stomach, Percutaneous Endoscopic Approach (ICD-10-PCS; principal; 2024-08-22)
DX: K95.09 Other complications of gastric band procedure (principal); E66.01 Morbid (severe) obesity due to excess calories; B00.9 Herpesviral infection, unspecified; E03.9 Hypothyroidism, unspecified; M54.42 Lumbago with sciatica, left side; Z98.890 Other specified postprocedural states; Z79.899 Other long term (current) drug therapy; Z90.49 Acquired absence of other specified parts of digestive tract; Z90.710 Acquired absence of both cervix and uterus; Z98.84 Bariatric surgery status; Z68.41 Body mass index [BMI] 40.0-44.9, adult
CPT/HCPCS: J0171; J0665; J1100; J1885; J2405; J2704; J3490; Q0162; S2900